=== PATIENT | male | born 1935 | race Caucasian/White ===

== ENCOUNTER 2023-01-16 20:29 | Emergency (ER) | payer MEDICARE, OTHER ==
[~2023-01-16] VITALS: Ht 167.6 cm; Wt 104.5 kg
[~2023-01-16 20:29] MED LIST: CHLO25TA2 PO; CHOL200035 PO; FERGLU300T PO; GEMF600T90 PO; HYT1T PO; MULT-1085 PO; NABU-104 PO; PANT40SU2 PO
[2023-01-16 20:39] VITALS: BP 123/82; PULSE 83; RESP 19; O2SAT 93
[2023-01-16 23:36] LABS: BASOPHILS % (AUTO) 0 % (0-1); EOSINOPHILS # (AUTO) 0.2 X10'3 (0-0.9); HEMATOCRIT 42.2 % (42.0-52.0); HEMOGLOBIN 13.9 g/dl (14.0-17.9); LYMPHOCYTES # (AUTO) 1.7 X10'3 (1.1-4.8); LYMPHOCYTES % (AUTO) 21.2 % (21-51); MEAN CORPUSCULAR HEMOGLOBIN 26.8 PG (27.0-31.0); MEAN CORPUSCULAR HGB CONC 32.9 g/dL (33.0-36.5); MEAN CORPUSCULAR VOLUME 81.3 FL (78-98); MEAN PLATELET VOLUME 7.9 FL (7.4-10.4); MONOCYTES # (AUTO) 1.2 X10'3 (0-0.9); MONOCYTES % (AUTO) 14.8 % (2-12); PLATELET COUNT 199 X10'3 (140-440); RED BLOOD COUNT 5.19 X10'6 (4.70-6.10); RED CELL DISTRIBUTION WIDTH 19.4 % (11.5-14.5); WHITE BLOOD COUNT 8.3 X10'3 (4.5-11.0)
--- NOTE | 2023-01-16 23:39 | NUR ---
HAD HIM STAND AT THE BEDSIDE, HE IS NOT ABLE TO VOID. STATES IT HAS BEEN LIKE THIS FOR ALL DAY. HE TRIES, HAS TO , BUT ELY AREVALO MADE AWARE.
[2023-01-16 23:45] LABS: ALANINE AMINOTRANSFERASE 20 U/L (12-78); ALBUMIN 2.6 G/DL (3.4-5.0); ALBUMIN/GLOBULIN RATIO 0.8 (1.1-1.5); ALKALINE PHOSPHATASE 52 IU/L (46-116); ANION GAP 7 (8-16); ASPARTATE AMINO TRANSFERASE 22 U/L (10-37); BILIRUBIN,TOTAL 0.3 MG/DL (0.1-1.0); BLOOD UREA NITROGEN 33 MG/DL (7-18); BUN/CREATININE RATIO 21.2 (10.0-20.0); CALCIUM 8.8 MG/DL (8.5-10.1); CHLORIDE 104 MMOL/L (99-107); CREATININE 1.56 MG/DL (0.60-1.10); GLUCOSE 95 MG/DL (70-104); POTASSIUM 3.3 MMOL/L (3.5-5.1); SODIUM 140 MMOL/L (135-145); TOTAL CARBON DIOXIDE 29.1 MMOL/L (24-32); eCRCL 30 ML/MIN; eGFR 42 ML/MIN
[2023-01-17] MEDS ORDERED: nystatin 15 GM powder TP STA (00:20)
--- NOTE | 2023-01-17 00:21 | NUR ---
FUNGAL RASH TO GROINS
[2023-01-17 00:46] LABS: BILIRUBIN,URINE NEGATIVE (Neg); CLARITY,URINE SLIGHTLY CLOUDY (Clear); COLOR,URINE YELLOW (Yellow); GLUCOSE, URINE NEGATIVE (Neg); KETONES,URINE NEGATIVE (Neg); LEUKOCYTE ESTERASE ,URINE NEGATIVE (Neg); NITRITES, URINE NEGATIVE (Neg); OCCULT BLOOD,URINE NEGATIVE (Neg); PROTEIN,URINE NEGATIVE (Neg); UROBILINOGEN,URINE 0.2 E.U/dL (0.2-1.0)
[2023-01-17 00:53] LABS: UA COLLECTION TYPE FOLEY CATH
[2023-01-17 00:56] LABS: HYALINE CASTS 0-3 /LPF (NEGATIVE); SQUAMOUS EPITHELIAL CELL,UR NONE SEEN /LPF (FEW)
[2023-01-17 00:59] LABS: BACTERIA,URINE FEW /HPF (Neg)
[2023-01-17 01:02] LABS: MUCUS STRANDS MANY /LPF (Neg); RENAL CELLS, URINE MODERATE /HPF
[2023-01-17 01:03] LABS: CAL OXALATE CRYSTALS FEW /HPF (NEGATIVE); WBC CLUMPS,URINE FEW /HPF (NEGATIVE)
[2023-01-17 01:37] VITALS: TEMP 98.1
== END 2023-01-17 01:44 | disposition home or self-care (01) ==
LOC: ER 20:31
DX: R46.4 Slowness and poor responsiveness (principal); E78.00 Pure hypercholesterolemia, unspecified; I10 Essential (primary) hypertension; K21.9 Gastro-esophageal reflux disease without esophagitis; M19.90 Unspecified osteoarthritis, unspecified site; Z88.1 Allergy status to other antibiotic agents; Z79.899 Other long term (current) drug therapy; W19.XXXA Unspecified fall, initial encounter; Y93.89 Activity, other specified; Y92.89 Other specified places as the place of occurrence of the external cause; Y99.8 Other external cause status
CPT/HCPCS: 36415; 70450; 80053; 81001; 85025; 87088; 99284